=== PATIENT | female | born 1975 | race Caucasian/White ===

== ENCOUNTER 2019-04-24 19:20 | Emergency (ER) | payer MEDICAID ==
[~2019-04-24] VITALS: Ht 170.2 cm; Wt 111.4 kg
[2019-04-24 19:25] VITALS: BP 151/94
[2019-04-24] MEDS ORDERED: MELO-100 PO (20:39)
[2019-04-24] MEDS ORDERED: LIDO700A32 TOP (20:39)
[2019-04-24] MEDS ORDERED: BACL10TA PO (20:39)
== END 2019-04-24 20:54 | disposition home or self-care (01) ==
LOC: ER 19:21
DX: M54.9 Dorsalgia, unspecified (principal); Z88.1 Allergy status to other antibiotic agents; Z88.2 Allergy status to sulfonamides; Z88.8 Allergy status to other drugs, medicaments and biological substances; Z79.899 Other long term (current) drug therapy
CPT/HCPCS: 99283

== ENCOUNTER 2019-12-16 10:49 | Emergency (ER) | payer MEDICAID ==
[~2019-12-16] VITALS: Ht 170.2 cm; Wt 117.0 kg
[~2019-12-16 10:49] MED LIST: BACL10TA PO; LIDO700A32 TOP; MELO-100 PO
[2019-12-16 10:52] VITALS: BP 164/97
[2019-12-16] MEDS ORDERED: normal saline 1000ML IV soln IVB ONE (11:05)
[2019-12-16] MEDS ORDERED: ketorolac trometh. 30mg/ml inj. IV ONE (11:05)
[2019-12-16 11:20] LABS: CLARITY,URINE SLIGHTLY CLOUDY (Clear); COLOR,URINE YELLOW (Yellow); GLUCOSE, URINE NEGATIVE (Neg); KETONES,URINE NEGATIVE (Neg); LEUKOCYTE ESTERASE ,URINE NEGATIVE (Neg); NITRITES, URINE NEGATIVE (Neg); OCCULT BLOOD,URINE SMALL (Neg); PH,URINE 5.5 (4.8-8.0); PROTEIN,URINE NEGATIVE (Neg); URINE HCG NEGATIVE (NEG); UROBILINOGEN,URINE 0.2 E.U/dL (0.2-1.0)
[2019-12-16 11:22] LABS: UA COLLECTION TYPE CLN CATCH MIDSTREAM
[2019-12-16 11:26] LABS: MUCUS STRANDS FEW /LPF (Neg); SQUAMOUS EPITHELIAL CELL,UR MANY /LPF (FEW)
[2019-12-16 11:27] LABS: BACTERIA,URINE FEW /HPF (Neg); WBC,URINE 0-4 /HPF (0-4)
[2019-12-16 11:51] LABS: BASOPHILS # (AUTO) 0.1 X10'3 (0-0.2); EOSINOPHILS # (AUTO) 0.1 X10'3 (0-0.9); EOSINOPHILS % (AUTO) 1.3 % (0-6); HEMATOCRIT 36.5 % (35.0-45.0); HEMOGLOBIN 11.7 g/dl (12.0-16.0); LYMPHOCYTES # (AUTO) 3.3 X10'3 (1.1-4.8); LYMPHOCYTES % (AUTO) 43.5 % (21-51); MEAN CORPUSCULAR HEMOGLOBIN 27.2 PG (27.0-31.0); MEAN CORPUSCULAR HGB CONC 32.1 g/dL (33.0-36.5); MEAN CORPUSCULAR VOLUME 84.8 FL (78-98); MEAN PLATELET VOLUME 9.2 FL (7.4-10.4); MONOCYTES # (AUTO) 0.7 X10'3 (0-0.9); MONOCYTES % (AUTO) 9.6 % (2-12); NEUTROPHILS # (AUTO) 3.4 X10'3 (1.8-7.7); NEUTROPHILS % (AUTO) 44.6 % (42-75); PLATELET COUNT 291 X10'3 (140-440); RED BLOOD COUNT 4.31 X10'6 (4.20-5.60); RED CELL DISTRIBUTION WIDTH 14.6 % (11.5-14.5); WHITE BLOOD COUNT 7.6 X10'3 (4.5-11.0)
[2019-12-16 12:10] LABS: ALANINE AMINOTRANSFERASE 16 U/L (12-78); ALBUMIN 3.4 G/DL (3.4-5.0); ALBUMIN/GLOBULIN RATIO 0.7 (1.1-1.5); ALKALINE PHOSPHATASE 58 IU/L (46-116); ANION GAP 9 (8-16); ASPARTATE AMINO TRANSFERASE 19 U/L (10-37); BILIRUBIN,TOTAL 0.3 MG/DL (0.1-1.0); BLOOD UREA NITROGEN 10 MG/DL (7-18); BUN/CREATININE RATIO 11.5 (6.6-38.0); CALCIUM 8.5 MG/DL (8.5-10.1); CHLORIDE 105 MMOL/L (99-107); CREATININE 0.87 MG/DL (0.40-0.90); GLUCOSE 88 MG/DL (70-104); LIPASE 116 U/L (73-393); POTASSIUM 3.8 MMOL/L (3.5-5.1); SODIUM 139 MMOL/L (135-145); TOTAL CARBON DIOXIDE 24.6 MMOL/L (24-32); eGFR 71 ML/MIN
[2019-12-16] MEDS ORDERED: HYDR-4383 PO (12:10)
[2019-12-16] MEDS ORDERED: KETO10TA2 PO (12:10)
[2019-12-16] MEDS ORDERED: HYDROcodone/acetaminophen 5mg/325mg tablet PO ONE (12:10)
== END 2019-12-16 12:58 | disposition home or self-care (01) ==
LOC: ER 10:50
DX: N83.02 Follicular cyst of left ovary (principal); R10.11 Right upper quadrant pain; R10.31 Right lower quadrant pain; D21.9 Benign neoplasm of connective and other soft tissue, unspecified; M54.5 Low back pain; Z88.1 Allergy status to other antibiotic agents; Z88.2 Allergy status to sulfonamides; Z88.8 Allergy status to other drugs, medicaments and biological substances; Z79.899 Other long term (current) drug therapy
CPT/HCPCS: 36415; 74176; 80053; 81001; 81025; 83690; 85025; 96374; 99284; J1885; J7030

== ENCOUNTER 2020-03-02 10:54 | Emergency (ER) | payer MEDICAID ==
[~2020-03-02] VITALS: Ht 170.2 cm; Wt 115.0 kg
[~2020-03-02 10:54] MED LIST changes: +HYDR-4383 PO; +KETO10TA2 PO
[2020-03-02 11:08] VITALS: BP 109/50
[2020-03-02] MEDS ORDERED: LIDOcaine 5% patch TP STA (12:03)
[2020-03-02] MEDS ORDERED: cyclobenzaprine 10mg tablet PO ONE (12:05)
[2020-03-02] MEDS ORDERED: CYCL-1 PO (12:07)
[2020-03-02] MEDS ORDERED: LIDO700A32 TOP (12:07)
== END 2020-03-02 12:57 | disposition home or self-care (01) ==
LOC: ER 10:55
DX: M54.41 Lumbago with sciatica, right side (principal); Z88.1 Allergy status to other antibiotic agents; Z88.2 Allergy status to sulfonamides; Z88.8 Allergy status to other drugs, medicaments and biological substances; Z79.899 Other long term (current) drug therapy
CPT/HCPCS: 99284

== ENCOUNTER → 2020-10-08 | Emergency (ER) | payer MEDICAID ==
[~2020-10-08] VITALS: Ht 172.7 cm; Wt 122.7 kg
[~2020-10-08] MED LIST changes: +CEFD300C3 PO; +CYCL-1 PO; +CefTRIAXone 250MG IM Kit w/LIDOcaine IM ONE; +CefTRIAXone 250MG inj IM ONE
[2020-10-08 16:11] VITALS: BP 138/90
[2020-10-08 16:39] LABS: CLARITY,URINE CLOUDY (Clear); COLOR,URINE YELLOW (Yellow); GLUCOSE, URINE NEGATIVE (Neg); KETONES,URINE NEGATIVE (Neg); LEUKOCYTE ESTERASE ,URINE NEGATIVE (Neg); NITRITES, URINE NEGATIVE (Neg); OCCULT BLOOD,URINE LARGE (Neg); PH,URINE 5.5 (4.8-8.0); PROTEIN,URINE TRACE mg/dl (Neg); UROBILINOGEN,URINE 0.2 E.U/dL (0.2-1.0)
[2020-10-08 16:42] LABS: UA COLLECTION TYPE CLN CATCH MIDSTREAM
[2020-10-08 16:50] LABS: BACTERIA,URINE FEW /HPF (Neg); MUCUS STRANDS FEW /LPF (Neg); RBC,URINE TNTC /HPF (0-2); SQUAMOUS EPITHELIAL CELL,UR MANY /LPF (FEW); WBC,URINE 0-4 /HPF (0-4)
--- NOTE | 2020-10-08 19:37 | NUR ---
PT REFUSES BLOOD DRAW. HAZEL DUQUE UPDATED.
--- NOTE | 2020-10-08 19:40 | NUR ---
PT REFUSING ROCEPHIN IM. HAZEL HDZ.
== END | disposition home or self-care (01) ==
LOC: ER 15:45
DX: N39.0 Urinary tract infection, site not specified (principal); R31.9 Hematuria, unspecified; R30.0 Dysuria; R11.0 Nausea; M54.5 Low back pain; R10.30 Lower abdominal pain, unspecified; Z87.442 Personal history of urinary calculi; Z88.1 Allergy status to other antibiotic agents; Z88.8 Allergy status to other drugs, medicaments and biological substances; Z79.2 Long term (current) use of antibiotics; Z79.899 Other long term (current) drug therapy
CPT/HCPCS: 81001; 99283